=== PATIENT | female | born 1960 | race Caucasian/White ===

== ENCOUNTER 2016-10-10 13:49 | Emergency (ER) | payer MEDICAID ==
[~2016-10-10] VITALS: Ht 154.9 cm; Wt 86.1 kg
[2016-10-10 14:06] VITALS: BP 136/84
[2016-10-10 15:28] LABS: HIV 1&2 ANTIBODY SCREEN Nonreactive (Nonreactive); HIV-1 p24 ANTIGEN Nonreactive (Nonreactive)
[2016-10-10 16:24] LABS: HEP B SURF. AB < 3.1 mIU/mL (0.0-10.0)
[2016-10-10] MEDS ORDERED: ACETAMINOPHEN 325 MG TABLET PO ONE (16:30)
[2016-10-10] MEDS ORDERED: ACETAMINOPHEN 325 MG TABLET ONE (16:34)
[2016-10-10 16:52] LABS: BLOOD UREA NITROGEN 19 mg/dL (7-18)
[2016-10-10 17:04] LABS: HEPATITIS C VIRUS ANTIBODY Nonreactive (Nonreactive)
== END 2016-10-10 17:28 | disposition home or self-care (01) ==
LOC: ED 17:22
DX: H60.11 Cellulitis of right external ear (principal); H92.01 Otalgia, right ear; Z88.6 Allergy status to analgesic agent; Z88.8 Allergy status to other drugs, medicaments and biological substances
CPT/HCPCS: 36415; 80048; 82040; 85025; 85651; 86703; 86706; 86803; 87899; 99284; G0435

== ENCOUNTER 2017-08-14 14:52 | Emergency (ER) | payer MEDICAID ==
[~2017-08-14] VITALS: Ht 152.4 cm; Wt 77.5 kg
[2017-08-14 14:55] VITALS: BP 171/87
[2017-08-14] MEDS ORDERED: HYDROcodone/APAP 10/325 MG TABLET PO ONE (16:30)
[2017-08-14] MEDS ORDERED: HYDROcodone/APAP 10/325 MG TABLET ONE (16:30)
== END 2017-08-14 17:34 | disposition home or self-care (01) ==
LOC: ED 17:25
DX: S30.0XXA Contusion of lower back and pelvis, initial encounter (principal); S00.11XA Contusion of right eyelid and periocular area, initial encounter; S00.83XA Contusion of other part of head, initial encounter; S40.811A Abrasion of right upper arm, initial encounter; W19.XXXA Unspecified fall, initial encounter; Y93.89 Activity, other specified; Y92.89 Other specified places as the place of occurrence of the external cause; Y99.8 Other external cause status
CPT/HCPCS: 70450; 70486; 72110; 72220; 99284

== ENCOUNTER 2018-10-18 16:11 | Emergency (ER) | payer MEDICAID ==
[~2018-10-18] VITALS: Ht 152.4 cm; Wt 88.0 kg
[2018-10-18] MEDS ORDERED: HYDROcodone/APAP 5/325 TABLET ONE (16:48)
[2018-10-18] MEDS ORDERED: METHOCARBAMOL 750 MG TABLET ONE (16:48)
--- NOTE | 2018-10-18 16:49 | NUR ---
PT TO XR VIA CHARLI.
[2018-10-18] MEDS ORDERED: METHOCARBAMOL 750 MG TABLET PO ONE (17:00)
[2018-10-18] MEDS ORDERED: HYDROcodone/APAP 5/325 TABLET PO ONE (17:00)
--- NOTE | 2018-10-18 17:30 | NUR ---
GIVen dc instruction bulgarian and georgian pt understoo pt up ambulated to check out
[2018-10-18 17:31] VITALS: BP 132/78
== END 2018-10-18 17:35 | disposition home or self-care (01) ==
LOC: ED 17:10
DX: S29.012A Strain of muscle and tendon of back wall of thorax, initial encounter (principal); M51.34 Other intervertebral disc degeneration, thoracic region; X58.XXXA Exposure to other specified factors, initial encounter; Y93.89 Activity, other specified; Y92.89 Other specified places as the place of occurrence of the external cause; Y99.8 Other external cause status
CPT/HCPCS: 71046; 72072; 99283

== ENCOUNTER 2019-03-03 13:06 | Emergency (ER) | payer MEDICAID ==
[~2019-03-03] VITALS: Ht 154.9 cm; Wt 90.1 kg
[2019-03-03 13:35] VITALS: BP 149/64
== END 2019-03-03 15:05 | disposition home or self-care (01) ==
LOC: ED 14:40
DX: S50.12XA Contusion of left forearm, initial encounter (principal); M25.522 Pain in left elbow; X58.XXXA Exposure to other specified factors, initial encounter; Y93.89 Activity, other specified; Y92.89 Other specified places as the place of occurrence of the external cause; Y99.8 Other external cause status
CPT/HCPCS: 99284

== ENCOUNTER 2019-06-08 20:47 | Emergency (ER) | payer MEDICAID, OTHER ==
[~2019-06-08] VITALS: Ht 154.9 cm; Wt 90.6 kg
--- NOTE | 2019-06-08 21:11 | NUR ---
PT HAS CO COUGH, SORE THROAT AND BODY ACHES SINCE YESTERDAY. PT NOT IN RESP DISTRESS. DENIES SOB AND CHEST PAIN. AT BEDSIDE.
[2019-06-08] MEDS ORDERED: ACETAMINOPHEN 500 MG TABLET ONE (21:24)
[2019-06-08] MEDS ORDERED: ACETAMINOPHEN 500 MG TABLET PO ONE (21:30)
--- NOTE | 2019-06-08 21:45 | NUR ---
REPORT RECEIVED, CARE ASSUMED.
[2019-06-08 22:05] LABS: BASOPHILS # (AUTO) 0.03 x10^3/uL (0-0.1); BASOPHILS % (AUTO) 0 % (0-1); EOSINOPHILS # (AUTO) 0.14 x10^3/uL (0-0.4); EOSINOPHILS % (AUTO) 2 % (1-7); LYMPHOCYTES # (AUTO) 1.67 x10^3/uL (1-3.4); LYMPHOCYTES % (AUTO) 19 % (22-44); MD NO; MEAN CORPUSCULAR HEMOGLOBIN 28.6 pg (27.0-34.8); MEAN CORPUSCULAR HGB CONC 33.3 g/dL (32.4-35.8); MEAN CORPUSCULAR VOLUME 86.1 fL (80-100); MONOCYTES # (AUTO) 0.84 x10^3/uL (0.2-0.8); MONOCYTES % (AUTO) 10 % (2-9); NEUTROPHILS # (AUTO) 6.08 x10^3/uL (1.8-6.8); NEUTROPHILS % (AUTO) 69 % (42-75); PLATELET COUNT 298 x10^3/uL (130-400); RED BLOOD COUNT 4.89 x10^6/uL (3.82-5.3); RED CELL DISTRIBUTION WIDTH 14.6 % (9.6-15.2)
[2019-06-08 22:07] LABS: RAPID INFLUENZA A Negative (Negative); RAPID INFLUENZA B Negative (Negative)
[2019-06-08 22:17] LABS: ALBUMIN 3.5 g/dL (3.4-5.0); ANION GAP 5 mmol/L (5-15); CALCIUM 8.7 mg/dL (8.5-10.1); CHLORIDE 106 mmol/L (98-107); CREATININE 0.82 mg/dL (0.55-1.02)
--- NOTE | 2019-06-08 22:50 | NUR ---
PT UP FOR RECHECK.
[2019-06-08 23:18] VITALS: BP 125/68
--- NOTE | 2019-06-08 23:42 | NUR ---
PT DC'D HOME WITH FAMILY WITH RX X 1. PT AND FAMILY TO DC DESK. PT GAIT STEADY.
== END 2019-06-08 23:45 | disposition home or self-care (01) ==
LOC: ED 22:46
DX: J02.8 Acute pharyngitis due to other specified organisms (principal); B97.89 Other viral agents as the cause of diseases classified elsewhere; M79.10 Myalgia, unspecified site; R11.10 Vomiting, unspecified; R00.0 Tachycardia, unspecified
CPT/HCPCS: 36415; 71045; 80048; 82040; 85025; 87400; 99284

== ENCOUNTER 2020-03-19 16:21 | Emergency (ER) | payer MEDICAID ==
[~2020-03-19] VITALS: Ht 160 cm; Wt 90.3 kg
[2020-03-19 16:42] VITALS: BP 151/73
--- NOTE | 2020-03-19 16:57 | NUR ---
[facility] # [id number] FOR TRIAGE
--- NOTE | 2020-03-19 17:15 | NUR ---
Patient/Caregiver given discharge instructions and they have confirmed that they understand the instructions. Patient ambulatory with steady gait.
== END 2020-03-19 17:17 | disposition home or self-care (01) ==
LOC: ED 16:31
DX: U07.1 COVID-19 (principal); J06.9 Acute upper respiratory infection, unspecified
CPT/HCPCS: 87635; 99283

== ENCOUNTER 2020-06-21 22:11 | Emergency (ER) | payer MEDICAID ==
[~2020-06-21] VITALS: Ht 152.4 cm; Wt 91.0 kg
--- NOTE | 2020-06-21 22:33 | NUR ---
CC OF ABD PAIN STARTING TODAY. NO VOMITING, AT BEDSIDE.
[2020-06-21] MEDS ORDERED: SODIUM CHLORIDE FLUSH 10ML SYR IVF ONE (23:30)
[2020-06-21] MEDS ORDERED: HYDROmorphone 2 MG/ML, 1ML IVPush PRN (23:30)
[2020-06-21] MEDS ORDERED: SODIUM CHLORIDE 0.9% 1,000ML IVBOLUS ONE (23:30)
[2020-06-21] MEDS ORDERED: ONDANSETRON 2MG/ML, 2ML IVPush ONE (23:30)
[2020-06-21 23:54] LABS: BASOPHILS % (AUTO) 0 % (0-1); EOSINOPHILS % (AUTO) 1 % (1-7); LYMPHOCYTES % (AUTO) 10 % (22-44); MEAN CORPUSCULAR HEMOGLOBIN 29.5 pg (27.0-34.8); MEAN CORPUSCULAR HGB CONC 34.3 g/dL (32.4-35.8); MONOCYTES % (AUTO) 5 % (2-9); NEUTROPHILS % (AUTO) 84 % (42-75); PLATELET COUNT 343 x10^3/uL (130-400); RED BLOOD COUNT 4.76 x10^6/uL (3.82-5.3); RED CELL DISTRIBUTION WIDTH 14.6 % (9.6-15.2)
--- NOTE | 2020-06-21 23:56 | NUR ---
US IN ROOM
[2020-06-21 23:57] LABS: MD NO
[2020-06-22] MEDS ORDERED: HYDROmorphone 1 MG/ML, 1ML INJ ONE
[2020-06-22] MEDS ORDERED: ONDANSETRON 2MG/ML, 2ML ONE
[2020-06-22 00:03] LABS: ALANINE AMINOTRANSFERASE 35 U/L (12-78); ALBUMIN 3.6 g/dL (3.4-5.0); ANION GAP 6 mmol/L (5-15); CALCIUM 8.8 mg/dL (8.5-10.1); CHLORIDE 104 mmol/L (98-107); CREATININE 0.79 mg/dL (0.55-1.02)
[2020-06-22 00:07] LABS: ALKALINE PHOSPHATASE 91 U/L (45-117); BILIRUBIN,TOTAL 0.5 mg/dL (0.2-1.0); TOTAL PROTEIN 7.7 g/dL (6.4-8.2); TROPONIN I < 0.015 ng/mL (0.000-0.045)
[2020-06-22] MEDS ORDERED: PROMETHAZINE 25 MG/ML, 1ML ONE (01:05)
[2020-06-22] MEDS ORDERED: POTASSIUM CHLORIDE 20 MEQ TAB.ER.PRT PO ONE (01:30)
[2020-06-22] MEDS ORDERED: PROMETHAZINE 25 MG/ML, 1ML IM ONE (01:30)
[2020-06-22] MEDS ORDERED: POTASSIUM CHLORIDE 20 MEQ TAB.ER.PRT ONE (01:51)
[2020-06-22 02:00] VITALS: BP 130/70
== END 2020-06-22 02:30 ==
LOC: ED 22:41
DX: K52.9 Noninfective gastroenteritis and colitis, unspecified (principal); R00.0 Tachycardia, unspecified; Z88.6 Allergy status to analgesic agent
CPT/HCPCS: 36415; 71045; 76700; 80053; 83690; 84484; 85025; 93005; 96361; 96372; 96374; 96375; 99285; J1170; J2405; J2550; J7030

== ENCOUNTER 2020-10-28 16:56 | Emergency (ER) | payer MEDICAID ==
[~2020-10-28] VITALS: Ht 157.5 cm; Wt 63.0 kg
--- NOTE | 2020-10-28 17:09 | NUR ---
pt ambulatory to room from triage, connected to monitors. family at bs. call light within reach. pt c/o right 4th finger swelling and pain.
--- NOTE | 2020-10-28 17:34 | NUR ---
PA AT BS
[2020-10-28] MEDS ORDERED: LIDOCAINE-MPF 1%, 5ML ONE (17:45)
[2020-10-28] MEDS ORDERED: LIDOCAINE-MPF 1%, 5ML INFIL ONE (18:00)
[2020-10-28 18:02] VITALS: BP 129/69
--- NOTE | 2020-10-28 18:33 | NUR ---
PA AT BS FOR I&D
--- NOTE | 2020-10-28 18:37 | NUR ---
Patient given discharge instructions and RX, they have confirmed that they understand the instructions. Patient ambulatory with steady gait.
== END 2020-10-28 18:44 | disposition home or self-care (01) ==
LOC: ED 17:16
DX: L03.011 Cellulitis of right finger (principal)
CPT/HCPCS: 10060